=== PATIENT | female | born 1975 | race Caucasian/White ===

== ENCOUNTER → 2017-09-30 | Outpatient (CLI) | payer BC | LOC: MC.RAD 13:56 | DX: Z12.31 Encounter for screening mammogram for malignant neoplasm of breast (principal); N63.42 Unspecified lump in left breast, subareolar; N63.11 Unspecified lump in the right breast, upper outer quadrant; Z98.890 Other specified postprocedural states ==

== ENCOUNTER → 2017-10-07 | Outpatient (CLI) | payer BC | LOC: MC.RAD 08:28 | DX: D24.2 Benign neoplasm of left breast (principal); N63.10 Unspecified lump in the right breast, unspecified quadrant ==

== ENCOUNTER → 2018-04-11 | Outpatient (CLI) | payer BC | LOC: MC.RAD 12:45 | DX: N63.20 Unspecified lump in the left breast, unspecified quadrant (principal) | CPT/HCPCS: G0279 ==

== ENCOUNTER → 2018-10-16 | Outpatient (CLI) | payer BC | LOC: MC.RAD 13:00 | DX: Z12.31 Encounter for screening mammogram for malignant neoplasm of breast (principal); N64.89 Other specified disorders of breast | CPT/HCPCS: G0279 ==

== ENCOUNTER → 2019-09-21 | Outpatient (CLI) | payer BC | LOC: MC.RAD 10:55 | DX: Z12.31 Encounter for screening mammogram for malignant neoplasm of breast (principal) ==

== ENCOUNTER → 2019-10-18 | Outpatient (CLI) | payer BC | LOC: MC.RAD 08:49 | DX: Z12.31 Encounter for screening mammogram for malignant neoplasm of breast (principal) ==

== ENCOUNTER → 2021-11-10 | Outpatient (CLI) | payer BC | LOC: MC.RAD 08:59 | DX: Z12.31 Encounter for screening mammogram for malignant neoplasm of breast (principal) ==